=== PATIENT | male | born 1945 | race Caucasian/White ===

== ENCOUNTER 2018-02-22 18:03 | Emergency (ER) | payer MEDICARE, OTHER ==
[2018-02-22] MEDS: IBUPROFEN 600 MG TAB PO (19:37)
== END 2018-02-22 21:08 | disposition home or self-care (01) ==
LOC: E/R 18:03
DX: H53.8 Other visual disturbances (principal); R10.84 Generalized abdominal pain; E11.319 Type 2 diabetes mellitus with unspecified diabetic retinopathy without macular edema; G44.209 Tension-type headache, unspecified, not intractable; E03.9 Hypothyroidism, unspecified; I10 Essential (primary) hypertension; I25.10 Atherosclerotic heart disease of native coronary artery without angina pectoris; R42 Dizziness and giddiness; Z87.891 Personal history of nicotine dependence; Z79.4 Long term (current) use of insulin; Z79.82 Long term (current) use of aspirin
CPT/HCPCS: 70450; 82962; 99284-25

== ENCOUNTER 2018-10-14 22:50 | Emergency (ER) | payer MEDICARE, OTHER ==
[2018-10-15] MEDS: ASPIRIN 325 MG TAB PO (01:10)
[2018-10-15] MEDS: HYDROCODONE/APAP (10/325) TAB PO (01:10)
[2018-10-15 01:20] LABS: ADD MAN DIFF? NO
[2018-10-15 01:21] LABS: WHITE BLOOD COUNT 10.2 10^3/ul (4.8-10.8)
[2018-10-15 01:21] LABS: BASOPHILS % 0.3 % (0.0-2.0); EOSINOPHILS # 0.3 10^3/ul (0.0-0.5); EOSINOPHILS % 2.5 % (0.0-7.0); HEMATOCRIT 40.1 % (42.0-52.0); HEMOGLOBIN 13.6 g/dl (14.0-18.0); LYMPHOCYTES # 1.5 10^3/ul (0.8-2.9); LYMPHOCYTES % 14.7 % (15.0-51.0); MEAN CORPUSCULAR HEMOGLOBIN 30.5 pg (29.0-33.0); MEAN CORPUSCULAR HGB CONC 33.9 g/dl (32.0-37.0); MEAN CORPUSCULAR VOLUME 89.9 fl (82.0-101.0); MEAN PLATELET VOLUME 9.9 fl (7.4-10.4); MONOCYTE # 0.8 10^3/ul (0.3-0.9); MONOCYTES % 7.4 % (0.0-11.0); NEUTROPHIL # 7.6 10^3/ul (1.6-7.5); NEUTROPHILS % 74.6 % (39.0-77.0); PLATELET COUNT 193 10^3/UL (140-415); RED BLOOD COUNT 4.46 10^6/ul (4.70-6.10); RED CELL DISTRIBUTION WIDTH 12.1 % (11.5-14.5)
[2018-10-15 01:41] LABS: ALANINE AMINOTRANSFERASE 23 IU/L (13-69); ALBUMIN 4.4 g/dl (3.3-4.9); ALBUMIN/GLOBULIN RATIO 1.62; ALKALINE PHOSPHATASE 123 IU/L (42-121); ANION GAP 11 (5-13); ASPARTATE AMINO TRANSFERASE 20 IU/L (15-46); BILIRUBIN,INDIRECT 0.2 mg/dl (0-1.1); BILIRUBIN,TOTAL 0.2 mg/dl (0.2-1.3); BLOOD UREA NITROGEN 19 mg/dl (7-20); CALCIUM 9.5 mg/dl (8.4-10.2); CARBON DIOXIDE 32 mmol/L (21-31); CHLORIDE 99 mmol/L (97-110); CREATININE 0.91 mg/dl (0.61-1.24); GLUCOSE 245 mg/dl (70-220); POTASSIUM 4.9 mmol/L (3.5-5.1); SODIUM 142 mmol/L (135-144); TOTAL PROTEIN 7.1 g/dl (6.1-8.1)
[2018-10-15 01:42] LABS: PARTIAL THROMBOPLASTIN TIME 26.9 Sec (23.0-35.0); PROTIME 11.1 Sec (11.9-14.9); PT RATIO 0.9
[2018-10-15 01:52] LABS: TROPONIN-I < 0.012 ng/ml (0.000-0.120)
[2018-10-15] MEDS: IOHEXOL 300MG/ML 150 ML BTL (03:33)
[2018-10-15] MEDS: SOD CHLORIDE 0.9% 100 ML (03:34)
[2018-10-15] MEDS: HYDROCODONE/APAP (5/325) TAB PO (04:52)
[2018-10-15] MEDS: CYCLOBENZAPRINE 10 MG TAB PO (04:52)
== END 2018-10-15 05:04 | disposition home or self-care (01) ==
LOC: FTE 22:50
DX: M54.2 Cervicalgia (principal); M62.838 Other muscle spasm; M54.10 Radiculopathy, site unspecified; E11.9 Type 2 diabetes mellitus without complications; F17.210 Nicotine dependence, cigarettes, uncomplicated; Z79.4 Long term (current) use of insulin; Z79.82 Long term (current) use of aspirin
CPT/HCPCS: 70496; 70498; 72125; 80053; 84484; 85025; 85610; 85730; 93005; 99285-25